=== PATIENT | female | born 1955 | race Caucasian/White ===

== ENCOUNTER → 2019-09-13 | Outpatient (CLI) | payer OTHER ==
[~2019-09-13] MED LIST: ADVAIRDISKUS IH; ADVIL200 M2 PO; ATORVASTATIN CA40 MG PO; COMBIVENT INH; DIAZEPAM 5 MG5 MG PO; FLUOXETINE HCL40 MG PO; HYDROCODON-ACE1 EAC8 PO; K-DUR 20 MEQ T20 MEQ PO; LIDODERM TP; MEDROLDOSEPACK PO; MS CONTIN 30 MG30 MG PO; MS CONTIN15 MG PO; NEXIUM PO; NORCO 5-325 TA1 EACH PO; OMEPRAZOLE 20 M20 MG PO; PHENERGAN 25 MG25 M1 PO; PROZAC 20 MG20 MG PO; SIMVASTATIN40 MG PO; TRAMADOL 50 MG50 MG PO; VALIUM10 MG PO; VICODIN ES TAB1 EACH; XANAX XR0.5 MG PO; ZOFRAN ODT4 MG SUBLING; [UNRECOGNIZED DRUG - CODE] GT
== END ==
LOC: M.RAD 15:30
DX: M18.9 Osteoarthritis of first carpometacarpal joint, unspecified (principal)